=== PATIENT | female | born 1990 | race Caucasian/White ===

== ENCOUNTER 2019-12-30 14:53 | Emergency (ER) | payer OTHER, SELFPAY ==
[2019-12-30 15:06] VITALS: BP 133/82; PULSE 87; RESP 16; TEMP 37.2; O2SAT 100
--- NOTE | 2019-12-30 15:16 | ED.GENADULT ---
HPI - General Adult General Chief complaint: Dizziness Stated complaint: Dizzy,lightheaded Time Seen by Provider: 12/30/19 15:24 Source: patient and RN notes reviewed Mode of arrival: ambulatory Limitations: no limitations History of Present Illness HPI narrative: This is a 29 years old female presented office with multiple complaint. Symptoms include feeling tired, feverish, intermittent dizziness and lightheaded,urinary frequency, white vaginal discharge, and dry mouth. She also report runny nose and cough.She does not have a primary care doctor. She had an [employer] doctor, she just delivered a baby 7 months ago. She concerned that she might be anemia or diabetes since it runs in her family. Related Data Home Medications Medication Instructions Recorded Confirmed No Home Medications 12/30/19 12/30/19 Allergies Allergy/AdvReac Type Severity Reaction Status Date / Time No Known Allergies Allergy Verified 12/30/19 15:18 Review of Systems Review of Systems: Narrative: CONSTITUTIONAL: Reports feverish feeling and tired EYES: Denies visual change/blurry vision. ENT: Denies sore throat or ears pain. CARDIOVASCULAR: Denies chest pain, palpitations, edema. RESPIRATORY: Denies dyspnea, wheezing. Report little cough GASTROINTESTINAL: Denies abdominal pain, nausea, vomiting, diarrhea. GENITOURINARY: Report urinary frequency, urgency with discharge at times. Denies vaginal lesions.Concern for STI; denies multiple partners. SKIN: Denies rash MUSCULOSKELETAL: Denies acute back pain NEUROLOGIC: Reports lightheaded; but not currently. [facility] Family History Family History Other Anemia Diabetes mellitus Heart disease Social History Social History Smoking status: Never smoker Gender identity (if verbalized by the patient): Female Comments At time of signature, I agree with nursing past medical, surgical, social and family history. Exam Narrative: Exam Narrative: GENERAL: This is a well-nourished, well-developed patient, in no apparent distress. EYES: PERRL. EMOI. No nystagmus noted. Sclera clear/white. Vision is grossly intact. EARS: External ears normal, auditory canals clear and without drainage, TMs normal without perforation. Hearing grossly intact. NOSE: External nose normal with no obvious nasal discharge, nares without redness, no rhinorrhea. THROAT: Mucous membranes moist, posterior pharynx clear. NECK: Neck supple, non-tender without lymphadenopathy, masses or thyromegaly.No carotid bruit noted CARDIOVASCULAR: Regular rate and rhythm without murmurs, gallops, or rubs. RESPIRATORY: Clear to auscultation. Breath sounds equal bilaterally. No wheezes, rales, or rhonchi. GASTROINTESTINAL: obese, abdomen soft, non-tender, nondistended. Bowel sounds are active. No hepato-splenomegaly, or palpable masses. No guarding. SKIN: warm, intact with no suspicious lesions or rash, good texture and turgor. NEURO: awake, alert, and oriented to person, place and time. There were no obvious focal neurologic abnormalities. Steady gait Shi Coma Scale Eye Opening: Spontaneous 4 Shi Coma Scale Motor: Obeys Commands 6 [place] Coma Scale Verbal: Oriented 5 Course Vital Signs Vital signs: Vital Signs Temperature 98.9 F 12/30/19 15:06 Pulse Rate 87 12/30/19 15:06 Respiratory Rate 16 12/30/19 15:06 Blood Pressure 133/82 12/30/19 15:06 Pulse Oximetry 100 12/30/19 15:06 Temperature 98.9 F 12/30/19 15:06 Pulse Rate 87 12/30/19 15:06 Respiratory Rate 16 12/30/19 15:06 Blood Pressure 133/82 12/30/19 15:06 Pulse Oximetry 100 12/30/19 15:06 Medical Decision Making MDM Narrative Medical decision making narrative: Discharge instructions reviewed with patient, as well as provided in writing per nursing staff. The instructions also include specific and strict return/GO TO THE ER
== END 2019-12-30 16:07 | disposition home or self-care (01) ==
PROVIDERS: Emergency Provider Nurse Practitioner
DX: R35.0 Frequency of micturition (principal); R42 Dizziness and giddiness
CPT/HCPCS: 81003; 81025; 87086; 87088; 99203; G0463